=== PATIENT | female | born 1930 | race Caucasian/White ===

== ENCOUNTER 2017-04-10 01:32 | Observation (INO) | payer MEDICARE, OTHER ==
[~2017-04-10] VITALS: Ht 157.5 cm; Wt 47.2 kg
[2017-04-10] VITALS (16 sets, daily range): BP systolic 97–139; BP diastolic 62–116
[~2017-04-10 01:32] MED LIST: ALPR-1 PO; ALPR-445 PO; ALPR-459 PO; ASPI-1471 PO; CEPH-13 PO; CHLO1CAP12 PO; CHLO1CAP45 PO; CHOL100052 PO; DIPH-1 PO; FLU60SYR30 IM ONLY; HYDR-6018 RC; LACT1CAP6 PO; LOR5/325 PO; SIMV10TA96 PO
[2017-04-10 09:17] LABS: PLATELET COUNT, AUTOMATED 230 K/uL (150-450)
[2017-04-10] MEDS ORDERED: ceFAZolin(*) 1 GM VIAL 1 GM in NS(*) 0.9% 100 ML ADDVANT BAG 100 ML IVPB ONE (11:50)
[2017-04-10] MEDS ORDERED: FAMOTIDINE 20 MG TAB PO ONE (11:50)
[2017-04-10] MEDS ORDERED: LIDOCAINE/SOD BICARB 8.4% SYR ID ONE (11:50)
[2017-04-10] MEDS ORDERED: MIDAZOLAM 2 MG/2 ML VIAL IVP ONE (11:50)
[2017-04-10] MEDS ORDERED: NORMOSOL R SOLN(*) 1000 ML BAG 1,000 ML IV PRN (11:50)
[2017-04-10] MEDS ORDERED: ROPIVACAINE 0.5% 20 ML VIAL ONE (13:34)
[2017-04-10] MEDS ORDERED: ISOSULFAN BLUE 1% SLN 50MG/5ML ONE (13:36)
[2017-04-10] MEDS ORDERED: fentaNYL CITR 100 MCG/2 ML AMP ONE ×3 (14:26→16:47)
[2017-04-10] MEDS ORDERED: NS(*) 0.9% 1000 ML BAG 1,000 ML IV PRN (16:28)
[2017-04-10] MEDS ORDERED: MORPHINE 2 MG/ML SYR IVP PRN (16:30)
[2017-04-10] MEDS ORDERED: FLUSH 10 ML SYR IVP PRN (16:30)
[2017-04-10] MEDS ORDERED: ONDANSETRON 4 MG/2 ML VIAL IVP PRN (16:30)
--- NOTE | 2017-04-10 16:48 | Post Operative Progress Note ---
Post Operative Progress Note Date: Apr 10, 2017 Time: 16:33 Surgeon: Michael Dictation number: [id number] Anesthesia: GETA by Dr. Daily Pre-Op Diagnosis: Left breast UOQ cancer Post-Op Diagnosis: IAM Findings: 5/5 SLN negative on frozen section for metastatic cancer Procedure(s): Left breast cancer wide excision, quartectomy Left axilla SLN excision Specimen Removed:(May be N/A): 1) SLN 1-5 2) Left breast cancer Complications: None Fluids: See anesthesia record Estimated Blood Loss: Minimal Date OP Note Dictated: Apr 10, 2017 Time OP Note Dictated: 16:35 SANDIE ALICEA MD Apr 10, 2017 16:48
--- NOTE | 2017-04-10 16:59 | RADIOLOGY IMAGING REPORT ---
FACILITY: [facility] PATIENT NAME: Maty Calvo : 1930 MR: [id number] V: [id number] EXAM DATE: ORDERING PHYSICIAN: SANDIE ALICEA TECHNOLOGIST: Location: [facility] Patient: Maty Calvo : 1930 Visit/Account:[id number] Date of Sevice: 04/10/2017 Exam type: SENTINAL NODE STUDY History: Left breast cancer Comparison: None. Findings: The patient received 494 uCi of technetium 99m lymphoseek in 4 subcutaneous left periareolar injectio ns. Multiple gamma camera images were obtained over the chest revealing numerous left axillary senti liset lymph nodes. IMPRESSION: 1. Numerous left axillary sentinel lymph nodes Report Dictated By: Mariela Brown MD at 04/10/2017 4:54 PM Report E-Signed By: Mariela Brown MD at 04/10/2017 4:55 PM WSN:[email or web address]
[2017-04-10] MEDS ORDERED: ALPRAZolam 0.25 MG TAB PO PRN (20:15)
[2017-04-10] MEDS: FAMOTIDINE 20 MG TAB PO SCH (20:57)
[2017-04-10] MEDS: DOCUSATE SODIUM 100 MG CAP PO SCH (20:58)
--- NOTE | 2017-04-10 21:10 | OPERATIVE REPORT 1 ---
EVENT DATE: April 10, 2017 SURGEON: Andrea Rodriguez MD ANESTHESIOLOGIST: Hamlet Daily MD ANESTHESIA: General endotracheal anesthesia. PREOPERATIVE DIAGNOSIS Left breast cancer. POSTOPERATIVE DIAGNOSIS Left breast cancer. PROCEDURES PERFORMED 1. Left axillary sentinel lymph node excision. 2. Left breast cancer wide local excision, quartectomy. COMPLICATIONS None. CONDITION Stable. BLOOD LOSS Minimal. SPECIMENS 1. There were five sentinel lymph nodes sent in separate containers for frozen section as well as permanent. 2. Left breast cancer marked with a short silk stitch on the superior aspect and a long silk stitch on the lateral aspect. INDICATIONS This is an 86-year-old female who was recently found to have a breast cancer in the upper-outer quadrant of her left breast that biopsy confirmed to be an invasive ductal carcinoma. She was referred to my office for definitive surgical treatment. DESCRIPTION OF PROCEDURE The patient was brought to the operating room and placed supine on the operating table. General endotracheal anesthesia was administered, and her left breast, axilla, and arm were prepped and draped in a sterile fashion. A timeout was completed, and I injected the circumareolar dermis with 5 mL of Lymphazurin. I then used the gamma probe to identify where the sentinel lymph nodes were emitting radioactive particles. I marked the skin at this area and anesthetized the skin with 0.5% ropivacaine plain. I made a transverse incision in the left axilla and dissected through the dermis, subcutaneous fat, and dissected down to the axillary contents using the gamma probe to periodically check where the hot lymph nodes were. I then sequentially removed five separate lymph nodes and obtained gamma counts on each of them. They were then sent each in turn to Pathology for frozen section analysis. While I was waiting for these results, I turned my attention to her left breast and made a radial type incision from just lateral to the areolar margin all the way up to the axilla and actually removed an ellipse of skin. I dissected completely around the palpable mass. What was palpable was actually quite large, measuring 5 cm in the longest dimension by about 3 cm in its cross dimension. I dissected all the way down to the pectoralis fascia, and the deep portion of the specimen contained the pectoralis fascia. I marked this specimen with a short silk stitch on the superior aspect and a long silk stitch on the lateral aspect, and this was sent for permanent pathology. By this time, I heard back from the pathologist, and there was no cancer in the lymph nodes. I then actually connected the breast incision to the axillary incision since they were in the lateral aspect of the breast, and the incisions were fairly close. I trimmed off some skin edges and then made this whole area hemostatic. I then closed the deep tissues with interrupted 3-0 Vicryl sutures in several layers and then closed the skin with interrupted 3-0 Vicryl deep dermal sutures and 4- 0 Monocryl running subcuticular sutures. The skin was cleaned and dried, and Steri-Strips were applied, followed by a sterile surgical dressing. The patient was awakened and extubated in the operating room and transported to the recovery room in stable condition having tolerated the procedure without any apparent problems. REGULO
[2017-04-11] VITALS: BP 102/66
[2017-04-11 01:30] VITALS: BP 98/65
[2017-04-11 02:00] VITALS: BP 97/62
--- NOTE | 2017-04-11 07:02 | General Surgery Progress Note ---
Subjective Progress Notes Subjective No complaints. Wants to go home. Has some dizziness that she thinks is related to her Meniere's dz. Physical Exam Vital Signs Date Time Temp Pulse Resp B/P (MAP) Pulse Ox O2 Delivery O2 Flow Rate FiO2 04/11/17 03:05 85 04/11/17 02:00 97.3 66 16 97/62 (74) Nasal Cannula 0.5 General Appearance: Alert, Awake, No Acute Distress, Afebrile Chest: Other (Dressing is C/D/I.) Extremities: Warm, Perfused Result Diagram: 04/10/17 0904 Assessment and Plan Problems: (1) Breast cancer of upper-outer quadrant of left female breast Status: Chronic Assessment & Plan: 04/11/17: POD#1 s/p left breast cancer wide excision and left axillary SLN bx. Doing well. Will have PT/OT see her and see if she's safe for d/c to home later today. Condition Stable. Time Spent: < 30 min Exam Sepsis Risk: No Definite Risk Problem Qualifiers (1) Breast cancer of upper-outer quadrant of left female breast: Estrogen receptor status: positive Qualified Codes: C50.412 - Malignant neoplasm of upper-outer quadrant of left female breast; Z17.0 - Estrogen receptor positive status [ER+] SANDIE ALICEA MD Apr 11, 2017 07:02
[2017-04-11] MEDS ORDERED: DOCU-202 PO (07:31)
[2017-04-11] MEDS ORDERED: PER PO (07:31)
[2017-04-11 08:18] VITALS: BP 105/70
[2017-04-11] MEDS: DOCUSATE SODIUM 100 MG CAP PO SCH (08:21)
[2017-04-11] MEDS: FAMOTIDINE 20 MG TAB PO SCH (08:21)
[2017-04-11 11:00] VITALS: Ht 157.5 cm; Wt 47.2 kg
== END 2017-04-11 12:53 | disposition home or self-care (01) ==
LOC: OR 01:32 → MED 18:00
PROVIDERS: ADMIT Surgery; ATTEND Surgery
DX: C50.412 Malignant neoplasm of upper-outer quadrant of left female breast (principal)
CPT/HCPCS: 19302; 36415; 78195; 85025; 88305; 88331; 88332; 88344; 97161; 97165; A9270; A9541; G0378; J0690; J2250; J2795; J3010; J7050; Q9968

== ENCOUNTER 2017-04-25 13:11 | Outpatient (RCR) | payer MEDICARE, OTHER ==
[2017-03-28 10:13] VITALS: BP 129/79
--- NOTE | 2017-03-28 20:24 | ONCOLOGY CONSULTATION ---
EVENT DATE: March 28, 2017 REFERRING PHYSICIAN Vincent Keith MD REASON FOR CONSULTATION Evaluation and management of left breast cancer. HISTORY OF PRESENT ILLNESS Patient is an 86-year-old female who presented with a palpable mass in the upper outer quadrant of the left breast. The patient had a diagnostic mammogram done on March 14, 2017, which showed dense left breast without new changes from previous mammograms. So the patient had an ultrasound of the left breast done on March 14, 2017, which showed a 1.7 cm hypoechoic mass at 2 o' clock of the left breast. 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 Ki-67 showed a high proliferation rate at 23.9%. PAST MEDICAL HISTORY 1. Meniere's disease 2. Colitis. 3. Anxiety. PAST SURGICAL HISTORY 1. Cataract surgery. 2. Appendectomy. 3. Total abdominal hysterectomy with bilateral salpingo-oophorectomy. 4. Resection of benign lumps from the right breast in the past. FAMILY HISTORY Negative for cancer or blood diseases. SOCIAL HISTORY Patient is with two children. She is a retired teacher. She drinks about a glass of wine on a daily basis. Denies any abuse of tobacco or illicit drugs. CURRENT MEDICATIONS 1. Alprazolam 0.25 mg t.i.d. 2. Librax capsule twice daily. 3. Lomotil p.r.n. for diarrhea. 4. Aspirin 81 mg daily. 5. ProBiotic-4 one daily. 6. Vitamin D 1000 international units once daily. ALLERGIES SULFA, AMITRIPTYLINE, CARBAMAZEPINE and ASACOL which caused elevation of liver enzymes. REVIEW OF SYSTEMS CONSTITUTIONAL: No appetite or weight change. No fever, chills or sweating. No recent infection. HEENT: Ears: No tinnitus or hearing problem. Nose: She has nasal discharge. Throat: No sore throat or mouth ulcers. Eyes: No diplopia or visual changes. RESPIRATORY: Patient has occasional wheezing from asthma. CARDIOVASCULAR: No chest pain, orthopnea, or paroxysmal nocturnal dyspnea (PND) . No edema. No palpitations. GASTROINTESTINAL: No nausea or vomiting. She has intermittent diarrhea, on treatment with Lomotil. No constipation. No change in bowel movements. No heartburn or swallowing difficulties. No abdominal pain. No jaundice. No hematemesis, melena or rectal bleeding. GENITOURINARY: No hematuria or dysuria. MUSCULOSKELETAL: He has left shoulder pain. NEUROLOGICAL: He has occasional headache. HEMATOLOGIC/LYMPHATIC: No bleeding or easy bruising. She has weakness, tiredness and fatigue. No enlarged lymph nodes. SKIN: No skin rash or lumps. PSYCHIATRIC: No anxiety or depression. PHYSICAL EXAMINATION GENERAL: Looks stable. Well-developed, well-nourished, and in no acute distress. VITAL SIGNS: Blood pressure 129/79, pulse 76 per minute, temperature 96.7, pulse oximetry 98% on room air. HEENT: Head: Atraumatic. No sinus tenderness to palpation. Eyes: No icterus or conjunctivitis. Mouth and throat: No oral thrush or mucositis. NECK: Supple. No cervical or supraclavicular lymphadenopathy. LUNGS: Clear to auscultation and percussion bilaterally. HEART: Regular rate and rhythm. No gallops, murmurs, clicks or rubs. BREASTS: On left breast exam a mass is palpable about 2 cm near the left axillary tail, firm in consistency, and there are some bruises around it from her recent biopsy. No axillary lymph node is noted. ABDOMEN: Soft and lax. No tenderness. No hepatosplenomegaly. No masses. EXTREMITIES: No cyanosis, clubbing or edema. LYMPHATICS: No peripheral lymphadenopathy. NEUROLOGICAL: Conscious, alert and oriented times three. No focal motor or sensory deficits. PSYCHIATRIC: Mood and affect appear normal. SKIN: No skin rash, bruise or purpuric eruption. 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 Ki-67 was 23.9% positive. I talked to the patient and her hasband today regarding further management. Our first step in management is surgical resection, either with lumpectomy versus mastectomy and sentinel lymph node biopsy. As her tumor is ER/LA positive, patient is a candidate for adjuvant hormonal therapy. Her proliferation rate with Ki-67 is high at 23.9%, and for this reason I will ask the surgeon to run Oncotype DX testing if the lymph nodes are negative. I am planning to refer the patient to Dr. Rodriguez for surgical resection, and I will see her back two weeks after her surgery to discuss about further adjuvant treatment. PLAN 1. Surgical consultation with Dr. Rodriguez. 2. Consider adjuvant hormonal therapy after surgery. 3. Consider chemotherapy based on pathologic report from her surgical resection. 4. Patient is to contact us for any new concerns or complaints. 5. Patient is to return two weeks after her surgery for further evaluation and management. REGULO
[2017-04-11 11:00] VITALS: Ht 160 cm; Wt 48.8 kg
[~2017-04-25] VITALS: Ht 160 cm; Wt 48.8 kg
[~2017-04-25 13:11] MED LIST changes: +DOCU-202 PO; +PER PO
[2017-04-25 13:31] VITALS: BP 104/65
[2017-04-25] MEDS ORDERED: ALPR-459 PO (13:45)
[2017-04-25 14:20] LABS: PLATELET COUNT, AUTOMATED 244 K/uL (150-450)
--- NOTE | 2017-04-25 21:19 | ONCOLOGY FOLLOW UP NOTE ---
EVENT DATE: April 25, 2017 DIAGNOSIS Left breast cancer. CHIEF COMPLAINT Patient is here today to discuss the results of her pathology from her recent lumpectomy of the left breast cancer and further management. ONCOLOGY HISTORY Patient is an 86-year-old female who presented with a palpable mass in the upper outer quadrant of the left breast. The patient had a diagnostic mammogram done on March 14, 2017, which showed dense left breast without new changes from previous mammograms. So the patient had an ultrasound of the left breast done on March 14, 2017, which showed a 1.7 cm hypoechoic mass at 2 o' clock of the left breast. This was followed by ultrasound coordinated biopsy of the left breast mass done on March 19, 2017, and the pathology came back positive for infiltrating ductal carcinoma grade 2/3, ER positive WA positive, HER2/jan 1+ by immunohistochemistry which was negative. Ki-67 showed a high proliferation rate at 23.9%. Patient had left breast lumpectomy and sentinel lymph node biopsy done on April 10, 2017, and the pathology came back positive for 1.2 cm invasive ductal carcinoma grade 2/3. Margins were negative. Lymphovascular invasion was negative. Six lymph nodes were negative for metastasis. HISTORY OF PRESENT ILLNESS Patient is here today to discuss the results of her pathology from her surgery and further adjuvant treatment. She is complaining of nasal discharge and left hip pain from bursitis, but other than that she is really doing very well for her age. PAST MEDICAL HISTORY 1. Meniere's disease 2. Colitis. 3. Anxiety. PAST SURGICAL HISTORY 1. Cataract surgery. 2. Appendectomy. 3. Total abdominal hysterectomy with bilateral salpingo-oophorectomy. 4. Resection of benign lumps from the right breast in the past. FAMILY HISTORY Negative for cancer or blood diseases. SOCIAL HISTORY Patient is with two children. She is a retired teacher. She drinks about a glass of wine on a daily basis. Denies any abuse of tobacco or illicit drugs. CURRENT MEDICATIONS 1. Alprazolam 0.25 mg t.i.d. 2. Librax capsule twice daily. 3. Lomotil p.r.n. for diarrhea. 4. Aspirin 81 mg daily. 5. ProBiotic-4 one daily. 6. Vitamin D 1000 international units once daily. ALLERGIES SULFA, AMITRIPTYLINE, CARBAMAZEPINE and ASACOL which caused elevation of liver enzymes. REVIEW OF SYSTEMS CONSTITUTIONAL: No appetite or weight change. No fever, chills or sweating. No recent infection. HEENT: Ears: No tinnitus or hearing problem. Nose: She has nasal discharge. Throat: No sore throat or mouth ulcers. Eyes: No diplopia or visual changes. RESPIRATORY: Patient has occasional wheezing from asthma. CARDIOVASCULAR: No chest pain, orthopnea, or paroxysmal nocturnal dyspnea (PND) . No edema. No palpitations. GASTROINTESTINAL: No nausea or vomiting. She has intermittent diarrhea, on treatment with Lomotil. No constipation. No change in bowel movements. No heartburn or swallowing difficulties. No abdominal pain. No jaundice. No hematemesis, melena or rectal bleeding. GENITOURINARY: No hematuria or dysuria. MUSCULOSKELETAL: He has left hip pain. NEUROLOGICAL: He has occasional headache. HEMATOLOGIC/LYMPHATIC: No bleeding or easy bruising. She has weakness, tiredness and fatigue. No enlarged lymph nodes. SKIN: No skin rash or lumps. PSYCHIATRIC: No anxiety or depression. PHYSICAL EXAMINATION GENERAL: Looks stable. Well-developed, well-nourished, and in no acute distress. VITAL SIGNS: Blood pressure 104/65, pulse 94 per minute, respirations 16 per minute, temperature 97.6, pulse oximetry 85%. HEENT: Head: Atraumatic. No sinus tenderness to palpation. Eyes: No icterus or conjunctivitis. Mouth and throat: No oral thrush or mucositis. NECK: Supple. No cervical or supraclavicular lymphadenopathy. LUNGS: Clear to auscultation and percussion bilaterally. HEART: Regular rate and rhythm. No gallops, murmurs, clicks or rubs. BREASTS: On left breast exam a mass is palpable about 2 cm near the left axillary tail, firm in consistency, and there are some bruises around it from her recent biopsy. No axillary lymph node is noted. ABDOMEN: Soft and lax. No tenderness. No hepatosplenomegaly. No masses. EXTREMITIES: No cyanosis, clubbing or edema. LYMPHATICS: No peripheral lymphadenopathy. NEUROLOGICAL: Conscious, alert and oriented times three. No focal motor or sensory deficits. PSYCHIATRIC: Mood and affect appear normal. SKIN: No skin rash, bruise or purpuric eruption. DIAGNOSTIC DATA Pathology from her lumpectomy and sentinel lymph node biopsy done on March did reveal 1.2 cm invasive ductal carcinoma grade 2/3 with negative margins, negative lymphovascular invasion. Six lymph node were negative for metastasis. ASSESSMENT Early localized left breast cancer status post left breast ultrasound core needle biopsy done on March 19, 2017, and the pathology was infiltrating ductal carcinoma grade 2-3, ER/WA positive, HER2/jan negative. Ki-67 was 23.9% positive. Patient had left breast lumpectomy and sentinel lymph node biopsy done on April 10, 2017, and the tumor was 1.2 cm invasive ductal carcinoma grade 2/3 with negative margins and negative lymphovascular invasion. Six sentinel lymph nodes were negative for metastasis. I talked to the patient today that having the size of her tumor and her age and the negativity of sentinel lymph nodes, I am planning to treat her with adjuvant hormonal therapy with one of the aromatase inhibitors. Prior to starting that treatment I am planning to get a DEXA scan, and I will check a vitamin D level. I am planning to treat her with Letrozole 2.5 mg daily for five years. Patient is also going to see Dr. Chen the radiation oncologist next week, and if the patient will start adjuvant radiation therapy I am planning to give her Letrozole after she will finish radiation therapy. Side effects from the treatment are explained to the patient. I am planning to see her one month, after starting the treatment with Letrozole, with CBC, chem panel, and I will check CBC, chem panel and vitamin D level prior to starting the treatment. I will check also her DEXA scan to see if the patient will be a candidate for Prolia during her aromatase inhibitor therapy or not. PLAN 1. Await the radiation oncology consultation. 2. Check CBC, chem panel, vitamin D level. 3. Check DEXA scan. 4. Consider Letrozole 2.5 mg orally daily to start after she will finish her adjuvant radiation therapy. 5. Patient to return a month after starting hormonal therapy with CBC, chem panel. 6. Consider Prolia if the patient has bad osteopenia or osteoporosis by DEXA scan while she is receiving treatment with Letrozole. 7. Patient is to contact us for any new concerns or complaints. [facility]
--- NOTE | 2017-05-01 09:53 | RADIOLOGY IMAGING REPORT ---
[place] [facility] [place] Maty Calvo : 1930 MR: [id number] V: [id number] EXAM DATE: ORDERING PHYSICIAN: CHRISTO EVERETT TECHNOLOGIST: Location: [facility] Patient: Maty Calvo : 1930 Visit/Account:[id number] Date of Sevice: 05/01/2017 DEXA Scan Clinical history: Breast cancer. Comparison: DEXA scan from 12/14/2014. LUMBAR SPINE: The bone mineral density (BMD) measured from L1-L4 correlates with a Z-score of 1.8 and a T-score of -0.6 which is Normal as defined by the World Health Organization. The corresponding risk of fracture in the lumbar spine is 1-2 times increased compared with a young adult reference population. This v alue has increased by 0.5 % since the prior study. More than 5% change is considered significant. HIP: Bone mineral density (BMD) measured in the LEFT total hip region correlates with a Z-score 1.1 and a T-score of -1.7 which is osteopenia as defined by the World Health Organization. The corresponding r isk of fracture in the hip is 3-4 times increased compared to a young adult reference population. Thi s value has decreased by 4. % since the prior study. More than 5% change is considered significant. T score left femoral neck -1.2 Bone mineral density (BMD) measured in the Femoral Neck region measures 0.871 g/cm?. IMPRESSION: 1. Lumbar spine: Normal. There has been 0.5% increase in the bone mineral density since the previou s exam. 2. Left Total Hip: Osteopenia. There has been 4% decrease in the bone mineral density since the pre vious exam. 3. Femoral Neck: Bone Mineral Density is 0.871 g/cm? The next DEXA scan of this patient should include the following sites: L1-L4 and the left hip. FRAX? WHO Fracture Risk Assessment Tool link: <http://www.shef.ac.uk/FRAX/tool.jsp?locationValue=9> PLEASE NOTE: 1) The World Health Organization defines low BMD as follows: T-score Normal > -1 Osteopenia < -1 and > -2.5 Osteoporosis < -2.5 without fractures Established osteoporosis < -2.5 with fractures 2) In general, you may wish to consider: Diagnosis Treatment Follow-up DEXA Normal BMD Prevention 2-3 years Osteopenia Prevention/therapy 1-2 years Osteoporosis Therapy Yearly 3) Fracture risk estimated from the T-score is more accurate for vertebral fractures (often spontane ous) than for hip fractures. Report Dictated By: Mariela Brown MD at 05/01/2017 8:54 AM Report E-Signed By: Mariela Brown MD at 05/01/2017 9:31 AM WSN:[email or web address]
== END 2017-05-06 15:50 | disposition home or self-care (01) ==
LOC: ONC 13:11
PROVIDERS: ATTEND Internal Medicine Hematology
DX: C50.912 Malignant neoplasm of unspecified site of left female breast (principal); Z79.899 Other long term (current) drug therapy; R53.1 Weakness; R53.83 Other fatigue; M85.88 Other specified disorders of bone density and structure, other site
CPT/HCPCS: 77080; 82306; 85025; G0463; 82040; 82247; 82310; 82374; 82435; 82565; 82947; 84075; 84132; 84155; 84295; 84450; 84460; 84520; 99202; 99212

== ENCOUNTER → 2017-06-12 | Outpatient (CLI) | payer MEDICARE, OTHER ==
[2017-04-11 11:00] VITALS: BMI 19.0
[~2017-06-12] MED LIST changes: +EXE25PT PO
== END ==
LOC: RESP 10:04
PROVIDERS: ATTEND Nurse Practitioner Family
DX: R09.02 Hypoxemia (principal)

== ENCOUNTER 2017-06-19 08:08 | Outpatient (RCR) | payer MEDICARE, OTHER ==
[2017-04-11 11:00] VITALS: Wt 48.8 kg
[2017-06-06 14:01] VITALS: BP 112/70
[2017-06-06 14:38] LABS: PLATELET COUNT, AUTOMATED 254 K/uL (150-450)
--- NOTE | 2017-06-07 12:58 | ONCOLOGY FOLLOW UP NOTE ---
EVENT DATE: June 06, 2017 DIAGNOSIS Left breast cancer. CHIEF COMPLAINT Patient is here today for followup of her left breast cancer after her adjuvant radiation therapy. ONCOLOGY HISTORY Patient is an 87-year-old female who presented with a palpable mass in the upper outer quadrant of the left breast. The patient had a diagnostic mammogram done on March 14, 2017, which showed dense left breast without new changes from previous mammograms. So the patient had an ultrasound of the left breast done on March 14, 2017, which showed a 1.7 cm hypoechoic mass at 2 o' clock of the left breast. 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 Ki-67 showed a high proliferation rate at 23.9%. Patient had left breast lumpectomy and sentinel lymph node biopsy done on April 10, 2017, and the pathology came back positive for 1.2 cm invasive ductal carcinoma grade 2/3. Margins were negative. Lymphovascular invasion was negative. Six lymph nodes were negative for metastasis. HISTORY OF PRESENT ILLNESS Patient is here today for followup of her left breast cancer after her finished her adjuvant radiation therapy. She is complaining of easy bruising and some fatigue after her radiation therapy, but other than that she is really doing very well. She has some skin reaction with dermatitis after her radiation therapy. PAST MEDICAL HISTORY 1. Meniere's disease 2. Colitis. 3. Anxiety. PAST SURGICAL HISTORY 1. Cataract surgery. 2. Appendectomy. 3. Total abdominal hysterectomy with bilateral salpingo-oophorectomy. 4. Resection of benign lumps from the right breast in the past. FAMILY HISTORY Negative for cancer or blood diseases. SOCIAL HISTORY Patient is with two children. She is a retired teacher. She drinks about a glass of wine on a daily basis. Denies any abuse of tobacco or illicit drugs. CURRENT MEDICATIONS 1. Alprazolam 0.25 mg t.i.d. 2. Librax capsule twice daily. 3. Lomotil p.r.n. for diarrhea. 4. Aspirin 81 mg daily. 5. ProBiotic-4 one daily. 6. Vitamin D 1000 international units once daily. ALLERGIES SULFA, AMITRIPTYLINE, CARBAMAZEPINE and ASACOL which caused elevation of liver enzymes. REVIEW OF SYSTEMS CONSTITUTIONAL: No appetite or weight change. No fever, chills or sweating. No recent infection. HEENT: Ears: No tinnitus or hearing problem. Nose: She has nasal discharge. Throat: No sore throat or mouth ulcers. Eyes: No diplopia or visual changes. RESPIRATORY: Patient has occasional wheezing from asthma. CARDIOVASCULAR: No chest pain, orthopnea, or paroxysmal nocturnal dyspnea (PND) . No edema. No palpitations. GASTROINTESTINAL: No nausea or vomiting. She has intermittent diarrhea, on treatment with Lomotil. No constipation. No change in bowel movements. No heartburn or swallowing difficulties. No abdominal pain. No jaundice. No hematemesis, melena or rectal bleeding. GENITOURINARY: No hematuria or dysuria. MUSCULOSKELETAL: He has left hip pain. NEUROLOGICAL: He has occasional headache. HEMATOLOGIC/LYMPHATIC: She bruises easily. She is weak, tired and fatigue. No enlarged lymph nodes. SKIN: No skin rash or lumps. PSYCHIATRIC: No anxiety or depression. PHYSICAL EXAMINATION GENERAL: Looks stable. Well-developed, well-nourished, and in no acute distress. VITAL SIGNS: Blood pressure 112/70, pulse 85 per minute, respirations 18 per minute, temperature 96.7, pulse ox 82%. HEENT: Head: Atraumatic. No sinus tenderness to palpation. Eyes: No icterus or conjunctivitis. Mouth and throat: No oral thrush or mucositis. NECK: Supple. No cervical or supraclavicular lymphadenopathy. LUNGS: Clear to auscultation and percussion bilaterally. HEART: Regular rate and rhythm. No gallops, murmurs, clicks or rubs. BREASTS: On left breast exam a mass is palpable about 2 cm near the left axillary tail, firm in consistency, and there are some bruises around it from her recent biopsy. No axillary lymph node is noted. ABDOMEN: Soft and lax. No tenderness. No hepatosplenomegaly. No masses. EXTREMITIES: No cyanosis, clubbing or edema. LYMPHATICS: No peripheral lymphadenopathy. NEUROLOGICAL: Conscious, alert and oriented times three. No focal motor or sensory deficits. PSYCHIATRIC: Mood and affect appear normal. SKIN: No skin rash, bruise or purpuric eruption. DIAGNOSTIC DATA Vitamin D level was normal at 55.3. Patient on vitamin D supplement. DEXA scan done on May 01, 2017 showed osteopenia of the left hip. ASSESSMENT 1. Early localized left breast cancer status post left breast ultrasound core needle biopsy done March 19, 2017, and the pathology was positive for infiltrating ductal carcinoma grade 2-3, ER/RI positive, HER2/jan negative and Ki-67 was 23.9% positive. Patient had left breast lumpectomy and sentinel lymph node biopsy done April 10, 2017, and the tumor was 1.2 cm invasive ductal carcinoma grade 2/3 with negative margins and negative lymphovascular invasion. Six lymph nodes were negative for metastasis. Patient completed her adjuvant radiation therapy May 2017. I talked to her today regarding adjuvant hormonal therapy which can decrease the risk of progression to invasive cancer in the same breast or in the other breast by about 50%, and the patient is interested in that option. I am planning to treat her with Letrozole 2.5 mg daily for a total of five years. I am planning to check her CBC, chem panel today prior to starting the treatment, and I will see her in three months with CBC, chem panel and CA 27-29. Side effects expected from Letrozole are explained to the patient and the patient agreed to start the treatment. 2. Osteopenia of the left hip. We will continue to monitor her DEXA scan while she is on aromatase inhibitor, every one to two years. PLAN 1. Letrozole 2.5 mg daily. 2. CBC, chem panel to be checked today. 3. Patient to return in three months with CBC, chem panel, CA 27-29. 3. Continue vitamin D supplement. 4. Patient is to contact us for any new concerns or complaints. MIKED
[~2017-06-19 08:08] MED LIST changes: -EXE25PT PO
[2017-06-19 08:19] VITALS: BP 119/76
[2017-06-19 08:31] LABS: PLATELET COUNT, AUTOMATED 179 K/uL (150-450)
[2017-06-19] MEDS ORDERED: EXE25PT PO (09:14)
--- NOTE | 2017-06-20 17:01 | ONCOLOGY FOLLOW UP NOTE ---
EVENT DATE: June 19, 2017 DIAGNOSIS Left breast cancer. CHIEF COMPLAINT Patient is here today for followup of her left breast cancer on adjuvant hormonal therapy with Letrozole. ONCOLOGY HISTORY Patient is an 87-year-old female who presented with a palpable mass in the upper outer quadrant of the left breast. The patient had a diagnostic mammogram done on March 14, 2017, which showed dense left breast without new changes from previous mammograms. So the patient had an ultrasound of the left breast done on March 14, 2017, which showed a 1.7 cm hypoechoic mass at 2 o' clock of the left breast. This was followed by ultrasound coordinated biopsy of the left breast mass done on March 19, 2017, and the pathology came back positive for infiltrating ductal carcinoma grade 2/3, ER positive VT positive, HER2/jan 1+ by immunohistochemistry which was negative. Ki-67 showed a high proliferation rate at 23.9%. Patient had left breast lumpectomy and sentinel lymph node biopsy done on April 10, 2017, and the pathology came back positive for 1.2 cm invasive ductal carcinoma grade 2/3. Margins were negative. Lymphovascular invasion was negative. Six lymph nodes were negative for metastasis. Patient started treatment with Letrozole 2.5 mg on June 06, 2012, but she developed dizziness and vertigo, so Letrozole was stopped. Patient started treatment with Aromasin on June 19, 2017. HISTORY OF PRESENT ILLNESS Patient is here today for followup of her left breast cancer. After she started treatment with Letrozole she developed dizziness and vertigo, so the patient stopped Letrozole. She is complaining of runny nose. She bruises easily. She has also some fatigue. Her dizziness and vertigo resolved with discontinuation of Letrozole. PAST MEDICAL HISTORY 1. Meniere's disease 2. Colitis. 3. Anxiety. PAST SURGICAL HISTORY 1. Cataract surgery. 2. Appendectomy. 3. Total abdominal hysterectomy with bilateral salpingo-oophorectomy. 4. Resection of benign lumps from the right breast in the past. FAMILY HISTORY Negative for cancer or blood diseases. SOCIAL HISTORY Patient is with two children. She is a retired teacher. She drinks about a glass of wine on a daily basis. Denies any abuse of tobacco or illicit drugs. CURRENT MEDICATIONS 1. Alprazolam 0.25 mg t.i.d. 2. Librax capsule twice daily. 3. Lomotil p.r.n. for diarrhea. 4. Aspirin 81 mg daily. 5. ProBiotic-4 one daily. 6. Vitamin D 1000 international units once daily. ALLERGIES SULFA, AMITRIPTYLINE, CARBAMAZEPINE and ASACOL which caused elevation of liver enzymes. REVIEW OF SYSTEMS CONSTITUTIONAL: No appetite or weight change. No fever, chills or sweating. No recent infection. HEENT: Ears: No tinnitus or hearing problem. Nose: She has runny nose. Throat: No sore throat or mouth ulcers. Eyes: No diplopia or visual changes. RESPIRATORY: Patient has occasional wheezing from asthma. CARDIOVASCULAR: No chest pain, orthopnea, or paroxysmal nocturnal dyspnea (PND) . No edema. No palpitations. GASTROINTESTINAL: No nausea or vomiting. She has intermittent diarrhea, on treatment with Lomotil. No constipation. No change in bowel movements. No heartburn or swallowing difficulties. No abdominal pain. No jaundice. No hematemesis, melena or rectal bleeding. GENITOURINARY: No hematuria or dysuria. MUSCULOSKELETAL: He has left hip pain. NEUROLOGICAL: He has occasional headache. HEMATOLOGIC/LYMPHATIC: She bruises easily. She is weak, tired and fatigue. No enlarged lymph nodes. SKIN: No skin rash or lumps. PSYCHIATRIC: No anxiety or depression. PHYSICAL EXAMINATION GENERAL: Looks stable. Well-developed, well-nourished, and in no acute distress. VITAL SIGNS: Blood pressure 119/76, pulse 61 per minute, respirations 17 per minute, temperature 98.2, pulse ox 88%. HEENT: Head: Atraumatic. No sinus tenderness to palpation. Eyes: No icterus or conjunctivitis. Mouth and throat: No oral thrush or mucositis. NECK: Supple. No cervical or supraclavicular lymphadenopathy. LUNGS: Clear to auscultation and percussion bilaterally. HEART: Regular rate and rhythm. No gallops, murmurs, clicks or rubs. BREASTS: On left breast exam a mass is palpable about 2 cm near the left axillary tail, firm in consistency, and there are some bruises around it from her recent biopsy. No axillary lymph node is noted. ABDOMEN: Soft and lax. No tenderness. No hepatosplenomegaly. No masses. EXTREMITIES: No cyanosis, clubbing or edema. LYMPHATICS: No peripheral lymphadenopathy. NEUROLOGICAL: Conscious, alert and oriented times three. No focal motor or sensory deficits. PSYCHIATRIC: Mood and affect appear normal. SKIN: No skin rash, bruise or purpuric eruption. DIAGNOSTIC DATA Pending, but her blood work on June 06, 2017 showed normal white count at 7.5, normal hemoglobin at 15.6, normal hematocrit at 46.5, normal platelets at 254, 000. Normal chem panel. ASSESSMENT 1. Early localized left breast cancer status post left breast ultrasound core needle biopsy done March 19, 2017, and the pathology came back positive for infiltrating ductal carcinoma grade 2-3, ER/VT positive, HER2/jan negative and Ki-67 was 23.9% positive. Patient had left breast lumpectomy and sentinel lymph node biopsy done April 10, 2017, and the tumor was 1.2 cm invasive ductal carcinoma grade 2/3 with negative margins and negative lymphovascular invasion. Six lymph nodes were negative for metastasis. Patient completed her adjuvant radiation therapy May 2017. She started treatment with adjuvant Letrozole therapy on June 06, 2017, but she developed vertigo and dizziness with the treatment, which was discontinued, and the patient felt much better after that. I am planning to try Aromasin 25 mg daily, and I will see her again in three months with CBC, chem panel and CA 27-29. I 2. Osteopenia of the left hip. I will continue to monitor her DEXA scan every one to two years. PLAN 1. Stop Letrozole. 2. Start Aromasin 25 mg daily. 3. Patient to return in three months with CBC, chem panel, CA 27-29. 4. Continue vitamin D supplement. 5. Patient is to contact us for any new concerns or complaints. MTDD
[2017-07-02] MEDS ORDERED: ALPR-459 PO (08:13)
[2017-07-25] MEDS ORDERED: DIPH-1 PO (12:40)
== END 2017-07-25 11:28 | disposition home or self-care (01) ==
LOC: ONC 08:08
PROVIDERS: ATTEND Internal Medicine Hematology
DX: C50.412 Malignant neoplasm of upper-outer quadrant of left female breast (principal); M85.88 Other specified disorders of bone density and structure, other site; R53.1 Weakness; R53.83 Other fatigue; R19.7 Diarrhea, unspecified
CPT/HCPCS: 36415; 85025; G0463; 82040; 82247; 82310; 82374; 82435; 82565; 82947; 84075; 84132; 84155; 84295; 84450; 84460; 84520; 99212

== ENCOUNTER 2017-07-08 13:50 | Outpatient (RCR) | payer MEDICARE, OTHER ==
[2017-04-11 11:00] VITALS: BMI 19.0
[~2017-07-08 13:50] MED LIST changes: +EXE25PT PO; +HYDROCORTISONE 1% CR 28.35 GM TP SCH
[2017-07-25] MEDS ORDERED: DIPH-1 PO (12:40)
== END 2017-07-27 ==
LOC: RAON 13:50
PROVIDERS: ATTEND Radiology Radiation Oncology
DX: Z51.0 Encounter for antineoplastic radiation therapy (principal); C50.412 Malignant neoplasm of upper-outer quadrant of left female breast; H81.09 Meniere's disease, unspecified ear; K52.9 Noninfective gastroenteritis and colitis, unspecified; I10 Essential (primary) hypertension; Z87.891 Personal history of nicotine dependence
CPT/HCPCS: 77280; 77290; 77336; 77412; 77417; A9270; G0463; 77080; 77295; 77300; 77334; 99202; 99212

== ENCOUNTER → 2017-07-18 | Outpatient (CLI) | payer MEDICARE, OTHER ==
[2017-04-11 11:00] VITALS: BMI 19.0
[~2017-07-18] MED LIST changes: -HYDROCORTISONE 1% CR 28.35 GM TP SCH; +IOPAMIDOL 76% 75 ML INFUS BTL 75 ML ONE; +NS 0.9% 150 ML BAG 150 ML ONE
--- NOTE | 2017-07-18 14:54 | RADIOLOGY IMAGING REPORT ---
FACILITY: [facility] PATIENT NAME: Maty Calvo : 1930 MR: [id number] V: [id number] EXAM DATE: ORDERING PHYSICIAN: KANU GONZALEZ TECHNOLOGIST: Location: [facility] - [place] Patient: Maty Calvo : 1930 Visit/Account:[id number] Date of Sevice: 07/18/2017 CTA CHEST WW/O CNTR (PULM ANG) HISTORY: hypoxia ADDITIONAL HISTORY: None. TECHNIQUE: CTA chest with intravenous contrast. Axial imaging acquired following administration of IV contrast timed for maximum opacification of the pulmonary arterial vasculature. Slab 3-D MIP sreedhar nstructed images were also created for further evaluation and interpretation. Reconstruction of the [facility] data set includes multiplanar 2-D in the sagittal and coronal planes and 3-D reconstructed bon nal slab MIP series. 3-D images were created by the technologist. Dose Lowering Technique One of the following dose optimization techniques was utilized in the performance of this exam: Autom ated exposure control; adjustment of the mA and/or kV according to the patient's size; or use of an i terative reconstruction technique. Specific details can be referenced in the facility's radiology C T exam operational policy. CONTRAST: 75 mL Isovue-370 COMPARISON: None. FINDINGS: Lungs/pleura: There is a 7 x 5 mm noncalcified nodule in the inferolateral right upper lobe with sev eral smaller adjacent satellite nodules. There is a thick band of consolidation in the medial right middle lobe and areas of bronchiectasis inferior right middle lobe and inferior lingula. There is a 3 mm groundglass nodule lateral aspect right lower lobe best seen on image 61. There is a 3 mm subpl eural nodule lateral aspect right lower lobe best seen on image 68. This mild diffuse centrilobular emphysema Heart/vessels: Negative. There are no filling defects seen in the pulmonary arteries worrisome for a pulmonary embolus.. There are mild calcifications in the thoracic aorta and branch vessels Mediastinum/lymph nodes: Negative. Visualized upper abdomen: Incompletely imaged is a 1.3 cm cyst anterior aspect left lobe the liver Bones/soft tissues: Negative. Additional findings: None IMPRESSION: No evidence of pulmonary emboli There are multiple noncalcified nodules in the lungs as detailed above. For multiple nodules measurin g 6 to 8 mm in size in a low risk patient, CT follow-up is recommended in 3-6 months, then consider C T at 18-24 months. For a high risk patient, CT follow-up is recommended at 3-6 months, then at 18-24 months. Bronchiectasis in the inferior right middle lobe and lingula. Mild diffuse centrilobular emphysema Report Dictated By: Mariela Brown MD at 07/18/2017 2:41 PM Report E-Signed By: Mariela Brown MD at 07/18/2017 2:50 PM WSN:[id number]
== END ==
LOC: CT 06:03
PROVIDERS: ATTEND Nurse Practitioner Family
DX: R91.8 Other nonspecific abnormal finding of lung field (principal)
CPT/HCPCS: 71275; Q9967

== ENCOUNTER → 2017-10-07 | Outpatient (CLI) | payer MEDICARE, OTHER ==
[2017-04-11 11:00] VITALS: BMI 19.0
[~2017-10-07] MED LIST changes: -IOPAMIDOL 76% 75 ML INFUS BTL 75 ML ONE; -NS 0.9% 150 ML BAG 150 ML ONE; +OXYGENHOME INH; +SAL50R INH
--- NOTE | 2017-10-07 18:17 | RADIOLOGY IMAGING REPORT ---
[place]AC[place] [facility] [place]IENT NAME: JOHNIE REYES : [id number] MR: [id number] V: [id number] EXAM DATE: [id number] ORDERING PHYSICIAN: TOMMIE TELLEZ TECHNOLOGIST: Zahida Garcia PROCEDURE:LEFT DIGITAL DIAGNOSTIC MAMMOGRAM COMPARISON:Prior mammograms 03/14/17 back to 08/29/14. INDICATIONS:POST RADIATION TREATMENT HISTORY: Left breast cancer surgical excised upper outer quadrant approximately 6 months ago. This is the first post-surgical mammogram. FINDINGS: The breast parenchyma is dense. There is mild architectural distortion of the surgical bed in the upper outer quadrant of the Left breast which is an expected post-surgical finding. No developing masses identified. Scattered benign appearing microcalcifications are stable and unchanged as far back as 2014. DIAGNOSTIC CATEGORY 2--BENIGN FINDING. RECOMMENDATIONS: ROUTINE MAMMOGRAM AND CLINICAL EVALUATION. IMPRESSION: BIRADS 2: Benign finding. Benign post-surgical scaring upper outer quadrant Left breast. Routine mammographic screening. I noticed that after the patient had left our department that her Right breast has not been screened in almost a year. Consequently I would recommend bilateral screening study in February 2018 which would be the anniversary date of her discovered cancer. Dictated by: Vicente Jay M.D. on 10/07/2017 at 14:49 Transcribed by: REBECCA on 10/07/2017 at 15:38 Approved by: Vicente Jay M.D. on 10/07/2017 at 18:16 [facility]
== END ==
LOC: MAMO 13:53
PROVIDERS: ATTEND Radiology Radiation Oncology
DX: C54.0 Malignant neoplasm of isthmus uteri (principal); Z17.0 Estrogen receptor positive status [ER+]; Z85.3 Personal history of malignant neoplasm of breast
CPT/HCPCS: 77061; 77065

== ENCOUNTER 2017-10-14 13:46 | Outpatient (RCR) | payer MEDICARE, OTHER ==
[2017-04-11 11:00] VITALS: BMI 19.0
== END 2017-10-15 13:43 | disposition home or self-care (01) ==
LOC: RAON 13:46
PROVIDERS: ATTEND Radiology Radiation Oncology
DX: Z51.0 Encounter for antineoplastic radiation therapy (principal); C50.412 Malignant neoplasm of upper-outer quadrant of left female breast; H81.09 Meniere's disease, unspecified ear; K52.9 Noninfective gastroenteritis and colitis, unspecified; I10 Essential (primary) hypertension; Z87.891 Personal history of nicotine dependence
CPT/HCPCS: 99212

== ENCOUNTER → 2017-11-18 | Outpatient (CLI) | payer MEDICARE, OTHER ==
[2017-04-11 11:00] VITALS: BMI 19.0
--- NOTE | 2017-11-18 15:39 | RADIOLOGY IMAGING REPORT ---
FACILITY: [facility] PATIENT NAME: Maty Calvo : 1930 MR: [id number] V: [id number] EXAM DATE: ORDERING PHYSICIAN: GUILHERME ABAD TECHNOLOGIST: Location: [facility] Patient: Maty Calvo : 1930 Visit/Account:[id number] Date of Sevice: 11/18/2017 CHEST W/O CONTRAST Provided history: Bronchiectasis. Previous smoker. No chest complaints. Additional pertinent history: none TECHNIQUE: Spiral scan was obtained from the lower neck through the lung bases without intravenous co ntrast. Source images were reformatted in the coronal and sagittal planes. Additional series performed today: High-resolution thin section axial scans were obtained at non-co ntiguous intervals during inspiration and expiration. One of the following dose optimization techniques was utilized in the performance of this exam: Autom ated exposure control; adjustment of the mA and/or kV according to the patient's size; or use of an i terative reconstruction technique. Specific details can be referenced in the facility's radiology CT exam operational policy. COMPARISON STUDIES: CT chest 07/18/17 FINDINGS: Lungs / pleura / herve: General screening: Correlating with the recent CT, there is tubular bronchiectasis in the right middl e lobe with stable mild patchy density, benign in origin. This is very similar to prior exam. No ad ditional sites of significant bronchiectasis. No new lobar infiltrate and no pleural fluid. There are moderately advanced changes of centrilobular emphysema particularly in the upper lungs. Airam ng bases have more mild emphysematous disease. Central airways are widely patent. There is no significant adenopathy. Esophagus appears normal. N o pericardial fluid. High risk study: There is no dominant interstitial disease pattern. There are no findings concerning for UIP. Specifically, no subpleural reticular densities, honeycombing or traction bronchiectasis. Lung nodules: A cluster of nodules in the lateral segment right middle lobe patchy smaller compared t o prior inflammatory in origin. Refer to image 6/46. Subpleural nodule lateral right lung base image 6/64 measures 5 mm and is unchanged. Lower neck: negative Mediastinum: negative Heart / pericardium: negative Vessels: negative Lymph nodes: negative Body wall: negative Upper abdomen: negative Bones: negative IMPRESSION: 1. The high risk series demonstrates no dominant interstitial pattern. 2. Stable bronchiectasis and surrounding inflammatory change right middle lobe. 3. Cluster of nodules in the right upper lobe is smaller compared to prior and benign in origin. Ad ditional subpleural nodules right lung base are very likely benign. Largest average diameter 5 mm. Suggest a follow-up low-dose CT chest in one year. Report Dictated By: Gil Galvan MD at 11/18/2017 3:12 PM Report E-Signed By: Gil Galvan MD at 11/18/2017 3:34 PM WSN:[id number]
== END ==
LOC: CT 06:58
PROVIDERS: ATTEND Internal Medicine
DX: J47.9 Bronchiectasis, uncomplicated (principal); R91.8 Other nonspecific abnormal finding of lung field
CPT/HCPCS: 71250

== ENCOUNTER → 2018-01-28 | Outpatient (CLI) | payer MEDICARE, OTHER ==
[2017-04-11 11:00] VITALS: BMI 19.0
--- NOTE | 2018-01-28 14:37 | RADIOLOGY IMAGING REPORT ---
FACILITY: [facility] PATIENT NAME: Maty Calvo : 1930 MR: [id number] V: [id number] EXAM DATE: ORDERING PHYSICIAN: GUILHERME ABAD TECHNOLOGIST: Location: [facility] [place] Patient: Maty Calvo : 1930 Visit/Account:[id number] Date of Sevice: 01/28/2018 CHEST W/O CONTRAST History: Pulmonary nodule TECHNIQUE: Contiguous axial images were performed through the chest to the level of the adrenal gla nds. No IV contrast was administered. Coronal and sagittal reformatting was also performed.Dose Lower ing Technique One of the following dose optimization techniques was utilized in the performance of this exam: Autom ated exposure control; adjustment of the mA and/or kV according to the patient's size; or use of an i terative reconstruction technique. Specific details can be referenced in the facility's radiology C T exam operational policy. COMPARISON STUDIES: November 18, 2017. Lungs / Pleura: Extensive centrilobular emphysema again seen throughout the lungs with an upper lob e predominance. Tubular bronchiectasis in the inferior right middle lobe with adjacent airspace cons olidation appears similar to the prior study mild tubular bronchiectasis with adjacent airspace conso lidation the inferior lingula also appears similar to the prior study. Small nodules in the peripher y of the right middle lobe appears slightly less prominent. 5 mm subpleural nodule lateral aspect th e right lung base on image 2:30 of series 4 appears unchanged 3 mm subpleural nodule lateral aspect r ight lower lobe on image 257 also appears unchanged. Several small 3 mm nodules anterior right lower lobe also appear unchanged Mediastinum/nodes: negative. Heart and vessels: Central pulmonary arteries are prominent bilaterally which may be related to pulm onary arterial hypertension Musculoskeletal / Body wall: There spondylotic changes of the thoracic spine Upper abdomen: There Is a 1.5 cm cyst in the lateral segment left lobe of the liver. Incidental note of a gastric diverticulum IMPRESSION: Extensive centrilobular emphysema again seen throughout the lungs with an upper lobe predominance Tubular bronchiectasis is again seen in the inferior right middle lobe and lingula with adjacent airs pace consolidation. These changes are much more prominent in the right middle lobe Small nodules in the right middle lobe and right lower lobe have remained stable Central pulmonary arteries are prominent bilaterally which may be related to pulmonary arterial hyper tension Report Dictated By: Mariela Brown MD at 01/28/2018 2:18 PM Report E-Signed By: Mariela Brown MD at 01/28/2018 2:33 PM CHANTELLN:[email or web address]
== END ==
LOC: CT 01:12
PROVIDERS: ATTEND Internal Medicine
DX: J43.2 Centrilobular emphysema (principal); J47.9 Bronchiectasis, uncomplicated; R91.1 Solitary pulmonary nodule
CPT/HCPCS: 71250

== ENCOUNTER 2018-02-13 09:11 | Emergency (ER) | payer MEDICARE, OTHER ==
[2017-04-11 11:00] VITALS: Wt 52.2 kg
[2018-02-13] MEDS ORDERED: MECLIZINE HCL 25 MG TAB PO ONE (09:40)
[2018-02-13 09:54] LABS: PLATELET COUNT, AUTOMATED 289 K/uL (150-450)
--- NOTE | 2018-02-13 10:40 | ER Report ---
History and Physical Time Seen By MD: 09:55 Hx. of Stated Complaint: PATIENT REPORTS AN INCREASE IN WEAKNESS AND DIZZINESS OVER THE LAST 3 WEEKS HPI/ROS CHIEF COMPLAINT: falls HISTORY OF PRESENT ILLNESS: Hx obtained in conj with ; per she has had vertigo c/w her meniere's, and has fallen 2 times in past 3 days. She denies injury; per report of both, yesterday she fell while on carpeted floor; she does not recall clear precipitating event, though he believes she was vertiginous. He helped her up and she ambulated without difficulty afterwards. She denies pain. notes that she is supposed to be on 02 4L and she admits she does not ambulate with this. Denies cp, sob, cough, denies vomiting. Occ diarrhea/constipation intermittent. REVIEW OF SYSTEMS: Constitutional: No fever, no chills. Eyes: No discharge. ENT: No sore throat. Cardiovascular: No chest pain, no palpitations. Respiratory: No cough, no shortness of breath. Gastrointestinal: No abdominal pain, no vomiting. Genitourinary: No hematuria, no dysuria. Pt has occ incontinence Musculoskeletal: No back pain. Skin: No rashes. Neurological: No headache. Remainder of the 14 system rev: Yes Allergies: Coded Allergies: Sulfa (Sulfonamide Antibiotics) (Unverified Allergy, Intermediate, rash, 02/27/17) amitriptyline (Unverified Allergy, Unknown, 02/27/17) carbamazepine (Unverified Allergy, Unknown, 02/27/17) mesalamine (Unverified Adverse Reaction, Intermediate, elevated LFT's, 02/27/17) Home Meds Active Scripts Chlordiazepoxide/Clidinium Br (LIBRAX CAPSULE) 1 Each Capsule, 1 CAP PO BID PRN for colitis, #60 CAPSULE 5 Refills Prov:MISSY HARRISON MD 01/27/18 Alprazolam (ALPRAZOLAM) 0.25 Mg Tab.rapdis, 1 TAB PO TID PRN for anxiety, #30 TAB 0 Refills Prov:MISSY HARRISON MD 01/07/18 Salmeterol Xinafoate (SEREVENT DISKUS) 50 Mcg Inh, 1 INH INH BID, #60 INH 3 Refills Prov:MISSY HARRISON MD 08/27/17 Reported Medications Oxygen (OXYGEN) Inha, 2 L INH cont, L 08/27/17 Cholecalciferol (Vitamin D3) (VITAMIN D) 1,000 Unit Tablet, 1 CAP PO QDAY 11/23/14 Lactobacillus Combination No.4 (PROBIOTIC) 1 Each Capsule, 1 CAP PO QDAY, 11/23/14 Aspirin (ASPIR 81) 81 Mg Tablet.dr, 1 TAB PO QDAY, TAB 11/23/14 Discontinued Scripts Hydrocortisone (PROCTOZONE-HC) 30 Gm Cream..g., 1 ALEE RC HS PRN for hemorrhoids, #1 TUBE 1 Refill Prov:MISSY HARRISON MD 02/05/18 Diphenoxylate Hcl/Atropine (LOMOTIL TABLET) 1 Each Tablet, 1 TAB PO QID PRN for diarrhea, #100 TAB 1 Refill Prov:MISSY HARRISON MD 12/24/17 Hx Smoking: Yes Smoking Status: Former Smoker Exposure to Second Hand Smoke?: Yes (father smoked cigars, pipe) Hx Substance Use Disorder: No Hx Alcohol Use: No Constitutional Vital Sign - Last 24 Hours 02/13/18 02/13/18 02/13/18 02/13/18 09:17 09:19 09:30 09:38 Temp 97.5 Resp 24 B/P (MAP) 110/70 110/70 (83) 99/72 (81) Pulse Ox 71 O2 Delivery Room Air 02/13/18 02/13/18 02/13/18 02/13/18 09:41 09:41 09:46 10:00 Pulse 68 72 B/P (MAP) 114/68 (83) Pulse Ox 95 93 O2 Flow Rate 5.0 02/13/18 02/13/18 02/13/18 10:30 10:46 11:00 Pulse 67 B/P (MAP) 109/71 (84) 117/66 (83) Pulse Ox 96 Physical Exam General Appearance: [The patient is alert, has no immediate need for airway protection and no signs of toxicity.] Eyes: Pupils equal and round no pallor or injection. No nystagmus ENT, Mouth: Mucous membranes are moist. Respiratory: There are no retractions; occ crackle Cardiovascular: Regular rate and rhythm. Gastrointestinal: Abdomen is soft and non tender, no masses, bowel sounds normal. Neurological: alert, oriented to person, place, date. Moves all ext. Nl fnf, no ddk, reflexes 2+ LE bilaterally. Skin: Warm and dry, no rashes; r prox forearm nontender ecchymosis Musculoskeletal: Neck is supple non tender. Extremities are nontender, nonswollen and have full range of motion. DIFFERENTIAL DIAGNOSIS: After history and physical exam differential diagnosis was considered for acs, PE, pneumonia or other cause of infection, cva; chapin cerebellar causing vertigo, fx or injury as result of fall, or other emergent etiology of symtpoms. Medical Decision Making Data Points Result Diagram: 02/13/1892502/13/18925 Laboratory Hematology Test 02/13/18 00:00 02/13/18 09:26 02/13/18 10:09 02/13/18 10:30 D-Dimer Quantitative (PE/DVT) 1.57 ug/ml (0-0.50) Red Blood Count 4.62 M/uL (4.17-5.56) Mean Corpuscular Volume 104.1 fL (80.0-96.0) Mean Corpuscular Hemoglobin 34.5 pg (26.0-33.0) Mean Corpuscular Hemoglobin Concent 33.1 g/dL (32.0-36.0) Red Cell Distribution Width 13.9 % (11.5-14.5) Mean Platelet Volume 7.6 fL (7.2-11.1) Neutrophils (%) (Auto) 82.8 % (39.4-72.5) Lymphocytes (%) (Auto) 9.2 % (17.6-49.6) Monocytes (%) (Auto) 7.3 % (4.1-12.4) Eosinophils (%) (Auto) 0.1 % (0.4-6.7) Basophils (%) (Auto) 0.6 % (0.3-1.4) Nucleated RBC Relative Count (auto) 0.0 /100WBC Neutrophils # (Auto) 8.2 K/uL (2.0-7.4) Lymphocytes # (Auto) 0.9 K/uL (1.3-3.6) Monocytes # (Auto) 0.7 K/uL (0.3-1.0) Eosinophils # (Auto) 0.0 K/uL (0.0-0.5) Basophils # (Auto) 0.1 K/uL (0.0-0.1) Nucleated RBC Absolute Count (auto) 0.00 K/uL Sodium Level 138 mmol/L (137-145) Potassium Level 4.4 mmol/L (3.5-5.0) Chloride Level 99 mmol/L (98-107) Carbon Dioxide Level 30 mmol/L (22-31) Blood Urea Nitrogen 19 mg/dl (7-18) Creatinine 0.70 mg/dl (0.52-1.04) Glomerular Filtration Rate Calc > 60.0 Random Glucose 136 mg/dl (75-110) Calcium Level 9.1 mg/dl (8.4-10.2) Magnesium Level 2.1 mg/dl (1.7-2.2) Total Bilirubin 1.5 mg/dl (0.2-1.3) Aspartate Amino Transf (AST/SGOT) 78 U/L (0-35) Alanine Aminotransferase (ALT/SGPT) 82 U/L (0-56) Alkaline Phosphatase 83 U/L (0-126) Troponin I 0.025 ng/ml Total Protein 7.2 g/dl (6.3-8.2) Albumin 3.7 g/dl (3.5-5.0) Serum Alcohol < 10 mg/dl Blood Gas Puncture Site Right radial Blood Gas Patient Temperature 97.5 DEGREES Arterial Blood pH 7.48 (7.35-7.45) Arterial Blood Partial Pressure CO2 34 mmHg (32-37) Arterial Blood Partial Pressure O2 67 mmHg (60-80) Arterial Blood HCO3 26 mmol/L (20-26) Arterial Blood Oxygen Saturation 95 % (92-100) Arterial Blood Base Excess 2.0 mmol/L Jairo Test Acceptable Oxygen Liters/Minute 37 Urine Color Yellow Urine Clarity Clear Urine pH 5.0 pH (4.8-9.5) Urine Specific [place] 1.013 Urine Protein Negative mg/dL (NEGATIVE) Urine Glucose (UA) Negative mg/dL (NEGATIVE) Urine Ketones Negative mg/dL (NEGATIVE) Urine Blood Negative (NEGATIVE) Urine Nitrite Negative (NEGATIVE) Urine Bilirubin Negative (NEGATIVE) Urine Urobilinogen Negative mg/dL (0.2-1.9) Urine Leukocyte Esterase Negative (NEGATIVE) Urine RBC <1 /HPF (0-2/HPF) Urine WBC <1 /HPF (0-5/HPF) Urine Squamous Epithelial Cells None /LPF (NONE-FEW) Urine Bacteria Few /HPF (NONE-FEW) Urine Mucus None /HPF (NONE-FEW) Chemistry Test 02/13/18 00:00 02/13/18 09:26 02/13/18 10:09 02/13/18 10:30 D-Dimer Quantitative (PE/DVT) 1.57 ug/ml (0-0.50) White Blood Count 9.8 k/uL (4.5-11.0) Red Blood Count 4.62 M/uL (4.17-5.56) Hemoglobin 15.9 g/dL (12.0-16.0) Hematocrit 48.1 % (34.0-47.0) Mean Corpuscular Volume 104.1 fL (80.0-96.0) Mean Corpuscular Hemoglobin 34.5 pg (26.0-33.0) Mean Corpuscular Hemoglobin Concent 33.1 g/dL (32.0-36.0) Red Cell Distribution Width 13.9 % (11.5-14.5) Platelet Count 289 K/uL (150-450) Mean Platelet Volume 7.6 fL (7.2-11.1) Neutrophils (%) (Auto) 82.8 % (39.4-72.5) Lymphocytes (%) (Auto) 9.2 % (17.6-49.6) Monocytes (%) (Auto) 7.3 % (4.1-12.4) Eosinophils (%) (Auto) 0.1 % (0.4-6.7) Basophils (%) (Auto) 0.6 % (0.3-1.4) Nucleated RBC Relative Count (auto) 0.0 /100WBC Neutrophils # (Auto) 8.2 K/uL (2.0-7.4) Lymphocytes # (Auto) 0.9 K/uL (1.3-3.6) Monocytes # (Auto) 0.7 K/uL (0.3-1.0) Eosinophils # (Auto) 0.0 K/uL (0.0-0.5) Basophils # (Auto) 0.1 K/uL (0.0-0.1) Nucleated RBC Absolute Count (auto) 0.00 K/uL Glomerular Filtration Rate Calc > 60.0 Calcium Level 9.1 mg/dl (8.4-10.2) Magnesium Level 2.1 mg/dl (1.7-2.2) Total Bilirubin 1.5 mg/dl (0.2-1.3) Aspartate Amino Transf (AST/SGOT) 78 U/L (0-35) Alanine Aminotransferase (ALT/SGPT) 82 U/L (0-56) Alkaline Phosphatase 83 U/L (0-126) Troponin I 0.025 ng/ml Total Protein 7.2 g/dl (6.3-8.2) Albumin 3.7 g/dl (3.5-5.0) Serum Alcohol < 10 mg/dl Blood Gas Puncture Site Right radial Blood Gas Patient Temperature 97.5 DEGREES Arterial Blood pH 7.48 (7.35-7.45) Arterial Blood Partial Pressure CO2 34 mmHg (32-37) Arterial Blood Partial Pressure O2 67 mmHg (60-80) Arterial Blood HCO3 26 mmol/L (20-26) Arterial Blood Oxygen Saturation 95 % (92-100) Arterial Blood Base Excess 2.0 mmol/L Jairo Test Acceptable Oxygen Liters/Minute 37 Urine Color Yellow Urine Clarity Clear Urine pH 5.0 pH (4.8-9.5) Urine Specific [place] 1.013 Urine Protein Negative mg/dL (NEGATIVE) Urine Glucose (UA) Negative mg/dL (NEGATIVE) Urine Ketones Negative mg/dL (NEGATIVE) Urine Blood Negative (NEGATIVE) Urine Nitrite Negative (NEGATIVE) Urine Bilirubin Negative (NEGATIVE) Urine Urobilinogen Negative mg/dL (0.2-1.9) Urine Leukocyte Esterase Negative (NEGATIVE) Urine RBC <1 /HPF (0-2/HPF) Urine WBC <1 /HPF (0-5/HPF) Urine Squamous Epithelial Cells None /LPF (NONE-FEW) Urine Bacteria Few /HPF (NONE-FEW) Urine Mucus None /HPF (NONE-FEW) Coagulation Test 02/13/18 00:00 D-Dimer Quantitative (PE/DVT) 1.57 ug/ml Toxicology Test 02/13/18 09:26 Serum Alcohol < 10 mg/dl Urinalysis Test 02/13/18 10:30 Urine Color Yellow Urine Clarity Clear Urine pH 5.0 pH (4.8-9.5) Urine Specific [place] 1.013 Urine Protein Negative mg/dL (NEGATIVE) Urine Glucose (UA) Negative mg/dL (NEGATIVE) Urine Ketones Negative mg/dL (NEGATIVE) Urine Blood Negative (NEGATIVE) Urine Nitrite Negative (NEGATIVE) Urine Bilirubin Negative (NEGATIVE) Urine Urobilinogen Negative mg/dL (0.2-1.9) Urine Leukocyte Esterase Negative (NEGATIVE) Urine RBC <1 /HPF (0-2/HPF) Urine WBC <1 /HPF (0-5/HPF) Urine Squamous Epithelial Cells None /LPF (NONE-FEW) Urine Bacteria Few /HPF (NONE-FEW) Urine Mucus None /HPF (NONE-FEW) EKG/Imaging EKG Interpretation 12 lead EKG: Rhythm: sinus rhythm with pac's [place]: normal QRS: low voltage (c/w pt's copd) ST segments: flipped T III, avF, V1-V4 No ST elevations [ ] Monitor Interpretation: NSR with PACs ED Course/Re-evaluation ED Course Patient bib with chief complaint of falls past 2 nights; also f eels pt has had increased vertigo c/w her Meniere's. Upon elicitng further hx, it appears pt is daily drinker, which may contribute to symptoms. In addition, she is on home 02 for COPD and does not ambulate with 02. This may be leading to sensation of dizziness/lightheadedness and falls. Pt's 02 sat was 70 here upon arrival. Labs sig for dimer > 1; CT pe ordered mild elevated lft's noted; c/w pt's moderate etoh intake CT shows pneumonia/mod effusion. Pt does not wish to be inpatient. I recommended this but she refuses, supports her choice. Therefore, first dose abx admin in ED, ambulates with sats 90 or above on home 02 I ordered her home 02 so she may leave with it. Will d/c on abx and recommend close f/u in 1 wk for determination of resolution and need for further evlauation of effusion, with very SRP's as pt understands effusion/infection may quickly worsen Decision to Disposition Date: Feb 13, 2018 Decision to Disposition Time: 13:36 Depart Departure Latest Vital Signs Vital Signs Date Time Temp Pulse Resp B/P (MAP) Pulse Ox O2 Delivery O2 Flow Rate FiO2 02/13/18 11:00 117/66 (83) 02/13/18 10:46 67 96 02/13/18 09:41 5.0 02/13/18 09:38 97.5 02/13/18 09:17 24 Room Air Impression: Primary Impression: Fall Additional Impressions: Contusion Pneumonia Pleural effusion Condition: Improved Disposition: HOME OR SELF-CARE Referrals: MISSY HARRISON MD (PCP) 2 Days New Scripts Azithromycin (ZITHROMAX) 250 Mg Tablet 1 TAB PO QDAY for 4 Days, #4 TAB Prov: ESAU MARQUEZ MD 02/13/18 Amoxicillin/Pot Clav 875-125 Mg Tab (AUGMENTIN 875-125 TABLET) 1 Each Tablet 1 TAB PO Q12H for 10 Days, #20 TAB Prov: ESAU MARQUEZ MD 02/13/18 Patient Instructions: Bacterial Pneumonia (ED), Pleural Effusion (ED) Additional Instructions: As we discussed, I recommended admission, however you wish to go home. Please take antibiotics as prescribed, use home 02 at all times at prescribed dose, and return immediately if worse or for any concerns. It is necessary that you follow up with your primary doctor; I recommend on Friday to recheck, then in 1 week to plan for imaging to make sure the effusion and signs of infection are not worse. Problem Qualifiers Primary Impression: Fall Encounter type: initial encounter Qualified Codes: W19.XXXA - Unspecified fall, initial encounter Additional Impressions: Contusion Encounter type: initial encounter Contusion area: forearm Laterality: right Qualified Codes: S50.11XA - Contusion of right forearm, initial encounter ESAU MARQUEZ MD Feb 13, 2018 10:40
--- NOTE | 2018-02-13 10:58 | RADIOLOGY IMAGING REPORT ---
FACILITY: [facility] PATIENT NAME: Maty Calvo : 1930 MR: [id number] V: [id number] EXAM DATE: ORDERING PHYSICIAN: ESAU MARQUEZ TECHNOLOGIST: Location: [facility] Patient: Maty Calvo : 1930 Visit/Account:[id number] Date of Sevice: 02/13/2018 CHEST PA AND LAT COMPARISON: Single view chest July 28, 2014 HISTORY: shortness of breath FINDINGS: CARDIAC/VASC: No cardiac silhouette abnormality or cardiomegaly. Unremarkable pulmonary vasculatu re. MEDIASTINUM: No visible mass or adenopathy. LUNGS/PLEURA: Hyperinflated lungs with coarse opacities in the right middle lobe which are new from previous which are most consistent with right middle lobe pneumonia. Trace right pleural effusion. No significant left lung opacities have developed.. No significant pulmonary parenchymal abnormalities. No effusion or pleural thickening. BONES: Mild thoracic spine degenerative changes. No acute fractures are identified. OTHER:Negative. IMPRESSION: Hyperinflated lungs consistent with COPD, with patchy right middle lobe opacities most consistent wit h pneumonia. Trace right pleural effusion, likely parapneumonic. Six-week follow-up after treatment r ecommended. Report Dictated By: Diallo Del Valle at 02/13/2018 10:52 AM Report E-Signed By: Diallo Del Valle at 02/13/2018 10:53 AM WSN:[id number]
--- NOTE | 2018-02-13 11:02 | EKG ---
FACILITY: [facility] PATIENT NAME: JOHNIE REYES : [id number] MR: [id number] V: [id number] EXAM DATE: ORDERING PHYSICIAN: ESAU MARQUEZ TECHNOLOGIST: MI Test Reason : SOB Blood Pressure : / mmHG Vent. Rate : 064 BPM Atrial Rate : 064 BPM P-R Int : 204 ms QRS Dur : 078 ms QT Int : 440 ms P-R-T Axes : 076 -01 -23 degrees QTc Int : 453 ms Sinus rhythm with blocked premature atrial complexes RSR' or QR pattern in V1 suggests right ventricular conduction delay Nonspecific T wave abnormality Abnormal ECG When compared with ECG of 28-JUL-2014 10:43, premature atrial complexes are now present RSR' pattern in V1 is now present T wave inversion now evident in Inferior leads Confirmed by Nilton Jackson ([id number]) on 02/13/2018 4:28:32 PM Referred By: ALMA Confirmed By:Nilton Hurst
[2018-02-13] MEDS ORDERED: IOPAMIDOL 76% 75 ML INFUS BTL 75 ML ONE (12:29)
[2018-02-13] MEDS ORDERED: NS(*) 0.9% 50 ML BAG 50 ML ONE (12:30)
--- NOTE | 2018-02-13 13:04 | RADIOLOGY IMAGING REPORT ---
FACILITY: [facility] PATIENT NAME: Maty Calvo : 1930 MR: [id number] V: [id number] EXAM DATE: ORDERING PHYSICIAN: ESAU MARQUEZ TECHNOLOGIST: Location: [facility] - [place], [place] Patient: Maty Clavo : 1930 Visit/Account:[id number] Date of Sevice: 02/13/2018 CT Angiogram Chest with IV contrast for pulmonary embolus detection History: Shortness of breath, confusion and hypoxemia. Elevated d-dimer. Comparison: CT chest 01/28/2018 Technique: Axial CT images through the chest were obtained in the pulmonary arterial phase of the con trast bolus during rapid administration of intravenous nonionic iodinated IV contrast. Reformatted c oronal and sagittal images were reviewed as well as coronal MIP images. Contrast used: 75 mL Isovue 370 One of the following dose optimization techniques was utilized in the performance of this exam: Autom ated exposure control; adjustment of the mA and/or kV according to the patient's size; or use of an i terative reconstruction technique. Specific details can be referenced in the facility's radiology C T exam operational policy. FINDINGS: CTA chest: Pulmonary arteries: No pulmonary thromboembolism is observed from main pulmonary artery to the subse gmental level. Central pulmonary arteries are large, measuring 3 cm diameter on the right and left, respectively. Heart, aorta, and great vessels: Mild cardiac enlargement. Thoracic aorta is ectatic and tortuous, and mildly calcified at the arch and descending segments. Lungs and pleura: Moderate dependent right pleural effusion is new. New nodular infiltrates with in distinct margins have developed in the right lower lobe. Small wedge-shaped lung opacity abutting th e anterior pleura in the mid chest is unchanged. Right middle lobe medial base atelectasis versus co nsolidated infiltrate has increased. There is a background of advanced centrilobular emphysema. Central airways are thick. Mediastinum and herve: The right infrahilar lymph node is larger, now measuring 18 x 11 mm, image 192 , series 4. Chest wall: Negative Bones: Mild degenerative disc changes are seen in the lower thoracic spine. Upper Abdomen: Negative IMPRESSION: 1. Negative CTA for pulmonary embolus. 2. New right lower lobe nodular infiltrates with indistinct margins, increased right middle lobe con solidation, and right infrahilar lymphadenopathy is suspicious for acute pneumonia. 3. New, moderate-sized right dependent pleural effusion. 4. Cardiomegaly, large central pulmonary arteries, and ectatic aorta are unchanged. Report Dictated By: Anastasiia Guy MD at 02/13/2018 12:52 PM Report E-Signed By: Anastasiia Guy MD at 02/13/2018 1:01 PM WSN:[email or web address]
[2018-02-13] MEDS ORDERED: AZITHROMYCIN 250 MG TAB PO ONE (13:20)
[2018-02-13] MEDS ORDERED: cefTRIAXone(*) 1 GM VIAL 1 GM in NS(*) 0.9% 100 ML ADDVANT BAG 100 ML IVPB ONE (13:20)
[2018-02-13] MEDS ORDERED: cefTRIAXone 1 GM VIAL IVP ONE (13:20)
[2018-02-13 13:30] VITALS: BP 110/58
[2018-02-13] MEDS ORDERED: AZIT-1 PO (13:39)
[2018-02-13] MEDS ORDERED: AMOX-559 PO (13:39)
== END 2018-02-13 13:58 | disposition home or self-care (01) ==
LOC: ER 09:24
DX: S50.11XA Contusion of right forearm, initial encounter (principal); J18.9 Pneumonia, unspecified organism; J90 Pleural effusion, not elsewhere classified; J44.9 Chronic obstructive pulmonary disease, unspecified; R09.02 Hypoxemia; W18.30XA Fall on same level, unspecified, initial encounter
CPT/HCPCS: 36600; 71046; 71275; 81001; 82803; 83735; 84484; 85025; 85379; 93005; 96374; 99284; A4353; G0480; J0696; J7050; J8597; Q0144; Q9967; 80320; 82040; 82247; 82310; 82374; 82435; 82565; 82947; 84075; 84132; 84155; 84295; 84450; 84460; 84520

== ENCOUNTER → 2018-02-24 | Outpatient (CLI) | payer MEDICARE, OTHER ==
[2017-04-11 11:00] VITALS: BMI 19.0
[~2018-02-24] MED LIST changes: +AMOX-559 PO; +AZIT-1 PO
--- NOTE | 2018-02-24 12:52 | RADIOLOGY IMAGING REPORT ---
FACILITY: [facility] [place] PATIENT NAME: Maty Calvo : 1930 MR: [id number] V: [id number] EXAM DATE: ORDERING PHYSICIAN: MISSY HARRISON TECHNOLOGIST: Location: [facility] Patient: Maty Calvo : 1930 Visit/Account:[id number] Date of Sevice: 02/24/2018 CHEST PA AND LAT Indication: RML pneumonia with effusion Comparison: Chest x-ray 02/13/2018. Findings: Lungs: Right middle lobe airspace opacity is unchanged. Previously seen right-sided pleural effusion has improved. Left lung is clear. Mediastinum/pulmonary vasculature: Heart size and pulmonary vasculature are normal. Bones/soft tissues: Normal. IMPRESSION: 1. Right middle lobe airspace opacity consistent with pneumonia. This is unchanged from 02/13/2018. 2. Clear left lung. Report Dictated By: Bernardo Negro at 02/24/2018 12:46 PM Report E-Signed By: Bernardo Negro at 02/24/2018 12:47 PM WSN:[id number]
== END ==
LOC: RAD 11:42
PROVIDERS: ATTEND Internal Medicine
DX: J18.1 Lobar pneumonia, unspecified organism (principal)
CPT/HCPCS: 71046

== ENCOUNTER 2018-08-02 15:41 | Emergency (ER) | payer MEDICARE, OTHER ==
[2017-04-11 11:00] VITALS: BMI 19.0
[~2018-08-02 15:41] MED LIST changes: +CITA-155 PO; +CYA1000 PO
--- NOTE | 2018-08-02 15:52 | ER Report ---
History and Physical Time Seen By MD: 15:51 HPI/ROS CHIEF COMPLAINT: Rectal bleeding HISTORY OF PRESENT ILLNESS: 80 HO female comes in with acute episode of bright red blood per rectum patient does have a history of hemorrhoids. Patient states that she noted today when she was going to [facility] bright red blood lasted a couple hours at episodically then went away said this happened last time [place] for hemorrhoids erupted. Patient denies any abdominal pain nausea vomiting diarrhea fever chills patient had normal bowel movement and is stopped bleeding about 2-3 hours prior to presentation is not actively bleeding now she has no additional complaints REVIEW OF SYSTEMS: Respiratory: No cough, no dyspnea. Cardiovascular: No chest pain, no palpitations. Gastrointestinal: Rectal bleeding without abdominal pain Musculoskeletal: No back pain. Remainder of the 14 system rev: Yes Allergies: Coded Allergies: Sulfa (Sulfonamide Antibiotics) (Unverified Allergy, Intermediate, rash, 02/27/17) amitriptyline (Unverified Allergy, Unknown, 02/27/17) carbamazepine (Unverified Allergy, Unknown, 02/27/17) mesalamine (Unverified Adverse Reaction, Intermediate, elevated LFT's, 02/27/17) Home Meds Active Scripts Chlordiazepoxide/Clidinium Br (LIBRAX CAPSULE) 1 Each Capsule, 1 CAP PO BID PRN for colitis, #60 CAPSULE 0 Refills Prov:BRIANA PUENTE MD 07/21/18 Diphenoxylate Hcl/Atropine (LOMOTIL TABLET) 1 Each Tablet, 1 TAB PO QID PRN for diarrhea, #100 TAB 1 Refill Prov:BRIANA PUENTE MD 05/27/18 Reported Medications Cyanocobalamin (Vitamin B-12) (VITAMIN B-12) 1,000 Mcg Tablet, 1 TAB PO DAILY 05/25/18 Oxygen (OXYGEN) Inha, 2 L INH cont, L 08/27/17 Cholecalciferol (Vitamin D3) (VITAMIN D) 1,000 Unit Tablet, 1 CAP PO QDAY 11/23/14 Lactobacillus Combination No.4 (PROBIOTIC) 1 Each Capsule, 1 CAP PO QDAY, 11/23/14 Aspirin (ASPIR 81) 81 Mg Tablet.dr, 1 TAB PO QDAY, TAB 11/23/14 Reviewed Nurses Notes: Yes Old Medical Records Reviewed: Yes Hx Smoking: Yes Smoking Status: Former Smoker Exposure to Second Hand Smoke?: Yes (father smoked cigars, pipe) Hx Substance Use Disorder: No Hx Alcohol Use: No Constitutional Vital Sign - Last 24 Hours 08/02/18 15:49 Temp 97.6 Pulse 68 Resp 18 B/P (MAP) 118/78 Pulse Ox 85 O2 Delivery Room Air Physical Exam General Appearance: The patient is alert, has no immediate need for airway protection and no current signs of toxicity. [ ] Eyes: Pupils equal and round no injection. Respiratory: Chest is non tender, lungs are clear to auscultation. Cardiac: regular rate and rhythm [ ] Gastrointestinal: Abdomen is soft and non tender, no masses, bowel sounds normal. Musculoskeletal: Neck: Neck is supple and non tender. Extremities have full range of motion and are non tender. Skin: No rashes or lesions. Rectal examination heme-negative no obvious external thrombosed or internal hemorrhoids noted DIFFERENTIAL DIAGNOSIS: After history and physical exam differential diagnosis was considered for hemorrhoid ruptured hemorrhoid rectal bleeding: Rectal cancer Medical Decision Making Data Points Result Diagram: 08/02/18 1605 08/02/18 1605 Laboratory Hematology Test 08/02/18 16:05 Red Blood Count 4.04 M/uL (4.17-5.56) Mean Corpuscular Volume 101.4 fL (80.0-96.0) Mean Corpuscular Hemoglobin 34.8 pg (26.0-33.0) Mean Corpuscular Hemoglobin Concent 34.3 g/dL (32.0-36.0) Red Cell Distribution Width 13.0 % (11.5-14.5) Mean Platelet Volume 7.3 fL (7.2-11.1) Neutrophils (%) (Auto) 67.2 % (39.4-72.5) Lymphocytes (%) (Auto) 23.2 % (17.6-49.6) Monocytes (%) (Auto) 7.5 % (4.1-12.4) Eosinophils (%) (Auto) 1.0 % (0.4-6.7) Basophils (%) (Auto) 1.1 % (0.3-1.4) Nucleated RBC Relative Count (auto) 0.0 /100WBC Neutrophils # (Auto) 5.3 K/uL (2.0-7.4) Lymphocytes # (Auto) 1.8 K/uL (1.3-3.6) Monocytes # (Auto) 0.6 K/uL (0.3-1.0) Eosinophils # (Auto) 0.1 K/uL (0.0-0.5) Basophils # (Auto) 0.1 K/uL (0.0-0.1) Nucleated RBC Absolute Count (auto) 0.00 K/uL Prothrombin Time 13.4 seconds (12.0-14.4) Prothromb Time International Ratio 1.02 Activated Partial Thromboplast Time 29 seconds (23-35) Sodium Level 133 mmol/L (137-145) Potassium Level 4.2 mmol/L (3.5-5.0) Chloride Level 99 mmol/L (98-107) Carbon Dioxide Level 30 mmol/L (22-31) Blood Urea Nitrogen 12 mg/dl (7-18) Creatinine 0.60 mg/dl (0.52-1.04) Glomerular Filtration Rate Calc > 60.0 Random Glucose 70 mg/dl (75-110) Calcium Level 8.9 mg/dl (8.4-10.2) Total Bilirubin 0.4 mg/dl (0.2-1.3) Aspartate Amino Transf (AST/SGOT) 25 U/L (0-35) Alanine Aminotransferase (ALT/SGPT) 28 U/L (0-56) Alkaline Phosphatase 49 U/L (0-126) Total Protein 6.5 g/dl (6.3-8.2) Albumin 3.8 g/dl (3.5-5.0) Chemistry Test 08/02/18 16:05 White Blood Count 7.8 k/uL (4.5-11.0) Red Blood Count 4.04 M/uL (4.17-5.56) Hemoglobin 14.1 g/dL (12.0-16.0) Hematocrit 41.0 % (34.0-47.0) Mean Corpuscular Volume 101.4 fL (80.0-96.0) Mean Corpuscular Hemoglobin 34.8 pg (26.0-33.0) Mean Corpuscular Hemoglobin Concent 34.3 g/dL (32.0-36.0) Red Cell Distribution Width 13.0 % (11.5-14.5) Platelet Count 233 K/uL (150-450) Mean Platelet Volume 7.3 fL (7.2-11.1) Neutrophils (%) (Auto) 67.2 % (39.4-72.5) Lymphocytes (%) (Auto) 23.2 % (17.6-49.6) Monocytes (%) (Auto) 7.5 % (4.1-12.4) Eosinophils (%) (Auto) 1.0 % (0.4-6.7) Basophils (%) (Auto) 1.1 % (0.3-1.4) Nucleated RBC Relative Count (auto) 0.0 /100WBC Neutrophils # (Auto) 5.3 K/uL (2.0-7.4) Lymphocytes # (Auto) 1.8 K/uL (1.3-3.6) Monocytes # (Auto) 0.6 K/uL (0.3-1.0) Eosinophils # (Auto) 0.1 K/uL (0.0-0.5) Basophils # (Auto) 0.1 K/uL (0.0-0.1) Nucleated RBC Absolute Count (auto) 0.00 K/uL Prothrombin Time 13.4 seconds (12.0-14.4) Prothromb Time International Ratio 1.02 Activated Partial Thromboplast Time 29 seconds (23-35) Glomerular Filtration Rate Calc > 60.0 Calcium Level 8.9 mg/dl (8.4-10.2) Total Bilirubin 0.4 mg/dl (0.2-1.3) Aspartate Amino Transf (AST/SGOT) 25 U/L (0-35) Alanine Aminotransferase (ALT/SGPT) 28 U/L (0-56) Alkaline Phosphatase 49 U/L (0-126) Total Protein 6.5 g/dl (6.3-8.2) Albumin 3.8 g/dl (3.5-5.0) Coagulation Test 08/02/18 16:05 Prothrombin Time 13.4 seconds Prothromb Time International Ratio 1.02 Activated Partial Thromboplast Time 29 seconds ED Course/Re-evaluation ED Course ED course 80-year-old female comes in with bright red blood per rectum heme- negative on arrival. Patient 1 hour and half before presentation is a history of hemorrhoids are physical exam does show a residual areas were most likely was a hemorrhoid that ruptured rest of exam was negative except for some stool in the vault CT scan was performed looking for mass bleed or lesion this was all negative she does have a large amount of stool in the vault Glanzer on some laxatives most likely this is hemorrhoidal bleed follow-up with primary care Decision to Disposition Date: August 02, 2018 Decision to Disposition Time: 17:32 Depart Departure Latest Vital Signs Vital Signs Date Time Temp Pulse Resp B/P (MAP) Pulse Ox O2 Delivery O2 Flow Rate FiO2 08/02/18 15:49 97.6 68 18 118/78 85 Room Air Impression: Primary Impression: Rectal bleeding Additional Impression: Constipation Condition: Improved Disposition: HOME OR SELF-CARE Referrals: DOYLE MANZO MD 5 Days New Scripts Polyethylene Glycol 3350 (MIRALAX) 17 Gm Powd.pack 17 GM PO BID for 7 Days, #14 PKT Prov: MALDONADO NUR MD 08/02/18 Patient Instructions: Constipation (DC), Rectal Bleeding (DC) Problem Qualifiers MALDONADO NUR MD August 02, 2018 15:52
[2018-08-02] MEDS ORDERED: IOPAMIDOL 76% 150 ML INFUS BTL 150 ML ONE (16:09)
[2018-08-02 16:16] LABS: PLATELET COUNT, AUTOMATED 233 K/uL (150-450)
[2018-08-02 16:25] LABS: INR 1.02
[2018-08-02 17:30] VITALS: BP 135/80
[2018-08-02] MEDS ORDERED: POLY17PO25 PO (17:34)
--- NOTE | 2018-08-02 17:36 | RADIOLOGY IMAGING REPORT ---
FACILITY: [facility] [place] PATIENT NAME: Maty Calvo : 1930 MR: [id number] V: [id number] EXAM DATE: ORDERING PHYSICIAN: MALDONADO NUR TECHNOLOGIST: Location: [facility] [place] Patient: Maty Calvo : 1930 Visit/Account:[id number] Date of Sevice: 08/02/2018 EXAMINATION: CT abdomen and pelvis with contrast COMPARISON: None. HISTORY: bleeding PROCEDURE: Multiplanar contrast enhanced CT of the abdomen and pelvis with 75 mL intravenous Isovue 3 70. One of the following dose optimization techniques was utilized in the performance of this exam: A utomated exposure control; adjustment of the mA and/or kV according to the patient's size; or use of an iterative reconstruction technique. Specific details can be referenced in the facility's radiolo gy CT exam operational policy. FINDINGS: Visualized thorax: Small region of peripheral airway inflammation and tree-in-bud density in the late ral left lower lobe. Background mild emphysema and architectural distortion. Liver: Left hepatic lobe 16 mm cyst. Otherwise negative. Gallbladder and biliary system: Negative. Spleen: Negative. Pancreas: Negative. Adrenal glands: Negative. Kidneys and bladder: No renal mass or evidence of an obstructive uropathy. Urinary bladder is unrema rkable. Vessels: Aortoiliac moderate atherosclerosis. No abdominal aortic aneurysm. Portal venous system, I VC, and major mesenteric vessels are patent. Bowel and mesentery: Stomach is within normal limits. No small bowel obstruction. The appendix is n ot identified; no pericecal inflammation. Small amount of stool throughout the colon with a moderate ly large amount of stool in the rectal vault. Distal colonic mild diverticulosis. No bowel or mesen teric inflammation. No definite soft tissue mass. Pelvic organs: Hysterectomy. No adnexal mass. Lymph nodes: No adenopathy. Free air/free fluid: None. Musculoskeletal: Abdominal wall is intact. Lumbar spine multilevel mild to moderate degenerative dis c disease with multilevel mild degenerative listhesis and spinal canal narrowing. No acute findings. IMPRESSION: 1. Small region of peripheral airway inflammation and tree-in-bud density in the visualized left low er lobe is suggestive of an infectious bronchiolitis. 2. Moderately large amount of stool in the rectal vault. 3. No findings of acute disease are otherwise identified in the abdomen and pelvis with chronic/inci dental findings as detailed above. Results were discussed with MALDONADO NUR at 08/02/2018 5:31 PM. Report Dictated By: Surendra Jacobo MD at 08/02/2018 5:17 PM Report E-Signed By: Surendra Jacobo MD at 08/02/2018 5:32 PM WSN:[id number]
[2018-08-03] MEDS ORDERED: CHLO1CAP45 PO (10:11)
== END 2018-08-02 17:45 | disposition home or self-care (01) ==
LOC: ER 15:49
DX: K62.5 Hemorrhage of anus and rectum (principal); K59.00 Constipation, unspecified
CPT/HCPCS: 74177; 85025; 85610; 85730; 99284; Q9967; 82040; 82247; 82310; 82374; 82435; 82565; 82947; 84075; 84132; 84155; 84295; 84450; 84460; 84520

== ENCOUNTER 2018-11-10 14:46 | Outpatient (RCR) | payer MEDICARE, OTHER ==
[2017-04-11 11:00] VITALS: BMI 19.0
[~2018-11-10 14:46] MED LIST changes: +ACET-2146 PO; +POLY17PO25 PO; +PSYL0.5235 PO
== END 2018-11-12 14:54 | disposition home or self-care (01) ==
LOC: ONC 14:46
PROVIDERS: ATTEND Internal Medicine Hematology
DX: C50.412 Malignant neoplasm of upper-outer quadrant of left female breast (principal)

== ENCOUNTER → 2018-11-11 | Outpatient (CLI) | payer MEDICARE, OTHER ==
[2017-04-11 11:00] VITALS: BMI 19.0
--- NOTE | 2018-11-11 16:21 | RADIOLOGY IMAGING REPORT ---
FACILITY: [facility] PATIENT NAME: JOHNIE REYES : [id number] MR: [id number] V: [id number] EXAM DATE: [id number] ORDERING PHYSICIAN: TAY PILLAI TECHNOLOGIST: Radha Cruz PROCEDURE:BILATERAL DIAGNOSTIC DIGITAL MAMMOGRAM WITH CAD ASSISTED INTERPRETATION & 3D TOMOSYNTHESIS REASON FOR STUDY: Prior history of Left breast cancer. FAMILY HISTORY OF BREAST CANCER: Self. BREAST PROCEDURES/TREATMENTS: 2 benign surgical biopsies in the Right breast & malignant Ultrasound guided biopsy of the Left breast in 2017 and radiation therapy to the Left breast. COMPARISON STUDIES: 10/07/17, 03/14/17, 10/30/16, 10/17/15, 09/06/14. VIEWS OBTAINED: Bilateral 2D & 3D full field CC & MLO projections. BREAST DENSITY: The breasts are heterogeneously dense which can obscure small masses. MAMMOGRAM FINDINGS: Again noted is an area of postsurgical scaring and architectural distortion in the upper outer quadrant of the Left breast in the mid to posterior depth in the location of the previous lumpectomy. There are scattered round calcifications throughout both breasts that have remained stable. DIAGNOSTIC CATEGORY 2--BENIGN FINDING. RECOMMENDATIONS: ROUTINE MAMMOGRAM AND CLINICAL EVALUATION. IMPRESSION: BIRADS 2: Benign finding. Dictated by: Mariela Brown M.D. on 11/11/2018 at 13:29 Transcribed by: REBECCA on 11/11/2018 at 14:13 Approved by: Mariela Brown M.D. on 11/11/2018 at 16:16 [facility]
== END ==
LOC: MAMO 04:13
PROVIDERS: ATTEND Nurse Practitioner
DX: R92.1 Mammographic calcification found on diagnostic imaging of breast (principal)
CPT/HCPCS: 77062; 77066